=== PATIENT | male | born 1965 | race Caucasian/White ===

== ENCOUNTER 2017-11-02 04:49 | Emergency (ER) | payer MEDICAID ==
[2017-11-02] MEDS ORDERED: IPRATROPIUM/ALBUTEROL (0.5MG/3MG) NEB INH ONE (05:01)
--- NOTE | 2017-11-02 05:08 | Emergency Department Record ---
History of Present Illness - General Chief Complaint: Shortness of breath Stated Complaint: JOSE Time Seen by Provider: 11/02/17 05:02 Source: Patient Mode of Arrival: Ambulatory Limitations: No limitations - History of Present Illness Initial Comments: 52 yo male presents to ED for evaluation of worsening cough and difficulty breathing after being diagnosed with CAP 3 days ago. Patient has been taking Zithromax without improvement in his symptoms. Patient reports chills and subjective fever symptoms, denies health problems at his baseline. MD Complaint: Shortness of breath Onset/Timin -: Days(s) Severity: Moderate Consistency: Constant Improves With: Nothing Worsens With: Inspiration Context: Recent URI Associated Symptoms: Chest pain, Fever - Related Data Home Oxygen Therapy: No Allergies Allergy/AdvReac Type Severity Reaction Status Date / Time No Known Drug Allergies Allergy Unverified 03/16/17 20:38 Travel Screening - Travel/Exposure Within Last 30 Days Have you traveled within the last 30 days?: No Review of Systems Constitutional: Reports: Chills, Fever, Malaise. Denies: Night sweats Eyes: Denies: Eye discharge, Eye pain ENT: Denies: Congestion, Ear pain, Epistaxis Respiratory: Reports: Cough, Dyspnea Cardiovascular: Reports: Chest pain, Dyspnea on exertion. Denies: Palpitations Endocrine: Denies: Fatigue, Heat or cold intolerance Gastrointestinal: Denies: Abdominal pain, Nausea, Vomiting Genitourinary: Denies: Incontinence, Retention Musculoskeletal: Denies: Arthralgia, Back pain, Gout, Joint swelling Skin: Denies: Bruising, Change in color Neurological: Denies: Abnormal gait, Confusion, Headache, Seizure Psychiatric: Denies: Anxiety Hematological/Lymphatic: Denies: Anemia, Blood Clots Past Medical History - SOCIAL HISTORY Smoking Status: Current every day smoker Alcohol Use: None Drug Use: None - RESPIRATORY Hx Respiratory Disorders: No - CARDIOVASCULAR Hx Cardio Disorders: No - NEURO Hx Neuro Disorders: No - GI Hx GI Disorders: No - Hx Genitourinary Disorders: No - ENDOCRINE Hx Endocrine Disorders: No - MUSCULOSKELETAL Hx Musculoskeletal Disorders: Yes Comment:: some swelling/discomfort in the right lower extremity - PSYCH Hx Psych Problems: No - HEMATOLOGY/ONCOLOGY Hx Hematology/Oncology Disorders: No Family Medical History Any Significant Family History?: No Physical Exam - General General Appearance: Alert, Oriented x3, Cooperative, Moderate distress Limitations: No limitations - Head Head exam: Atraumatic, Normocephalic, Normal inspection Head exam detail: negative: Abrasion, Contusion, Arreaga's sign, General tenderness, Hematoma, Laceration - Eye Eye exam: Normal appearance. negative: Conjunctival injection, Periorbital swelling, Periorbital tenderness, Scleral icterus - ENT Ear exam: negative: Auricular hematoma, Auricular trauma Nasal Exam: negative: Active bleeding, Discharge, Dried blood, Foreign body Mouth exam: negative: Drooling, Laceration, Muffled voice, Tongue elevation - Neck Neck exam: Normal inspection. negative: Meningismus, Tenderness - Respiratory Respiratory exam: Decreased breath sounds. negative: Rales, Respiratory distress, Rhonchi - Cardiovascular Cardiovascular Exam: Regular rate, Normal rhythm, Normal heart sounds - GI/Abdominal GI/Abdominal exam: Soft. negative: Rebound, Rigid, Tenderness - Rectal Rectal exam: Deferred - exam: Deferred - Extremities Extremities exam: Normal inspection. negative: Calf tenderness, Pedal edema, Tenderness - Back Back exam: Denies: CVA tenderness (R), CVA tenderness (L) - Neurological Neurological exam: Alert, Normal gait, Oriented X3 - Psychiatric Psychiatric exam: Normal affect, Normal mood - Skin Skin exam: Normal color. negative: Abrasion Type of lesion: negative: abrasion Course Vital Signs 11/02/17 05:01 Temperature 97.7 F Pulse Rate [ 79 Pulse Ox Probe] Respiratory 24 Rate Blood Pressure 137/87 [Right Arm] Pulse Ox 100 - Reevaluation(s) Reevaluation #1: 11/02/17 05:02 EKG: NSR 78 Normal axis, normal intervals No acute ST-T wave changes Reevaluation #2: 11/02/17 06:40 Labs reviewed, D-Dimer 4.03, BUN 34/Creatinine 1.0. Labs are otherwise grossly unremarkable for an acute process. CTA reviewed preliminarily, appears c/w infiltrate right as well as PE left. Heparin and Rocephin ordered pending final report. Reevaluation #3: 11/02/17 06:53 CTA Chest: Multi-focal filling defects c/w PE bilaterally Consolidation of the right middle/left lower lobe, PNA vs. Infarct. Jessica 1-call contacted for transfer. Medical Decision Making - Lab Data Result diagrams: 11/02/17 05:05 11/02/17 05:05 Disposition Disposition: Transfer Clinical Impression: Pulmonary emboli Qualifiers: Pulmonary embolism type: other Chronicity: acute Acute cor pulmonale presence: without acute cor pulmonale Qualified Code(s): I26.99 - Other pulmonary embolism without acute cor pulmonale CAP (community acquired pneumonia) Qualifiers: Laterality: unspecified laterality Qualified Code(s): J18.9 - Pneumonia, unspecified organism Disposition: Acute Care Hospital [facility] Transfer: PE/CAP Accepting Physician: Kelsey Time Discussed w/Accepting Physician: 07:25 Condition: (2) Stable Forms: Patient Portal Access Time of Disposition: 07:25 Quality - Quality Measures Quality Measures: N/A - Blood Pressure Screening Does Patient Have Any of the Following: No Blood Pressure Classification: Normal BP Reading Systolic Measurement: 100 Diastolic Measurement: 79 Screening for High Blood Pressure: < Normal BP, F/U Not Required > [G8783]
[2017-11-02] MEDS ORDERED: 0.9 % SODIUM CHLORIDE 1000ML 1,000 ML IV SCH (05:15)
[2017-11-02 05:19] LABS: HEMATOCRIT 43.6 % (42.0-52.0); HEMOGLOBIN 14.7 gm/dl (14.0-18.0); MEAN CELL VOLUME 97.3 fl (81-97); MEAN CORPUSCULAR HEMOGLOBIN 32.8 pg (27-33); MEAN CORPUSCULAR HGB CONC 33.7 g/dl (32-36); PLATELET COUNT 274 K/uL (130-400); RED BLOOD COUNT 4.48 M/uL (4.40-5.70); RED CELL DISTRIBUTION WIDTH 13.5 % (11.5-14.5); WHITE BLOOD COUNT W/O DIFF 9.7 K/uL (4.2-12.2)
[2017-11-02 05:33] LABS: BLOOD UREA NITROGEN 34 mg/dL (6-20); EST GLOMERULAR FILTRATION RATE > 60 mL/min
[2017-11-02 05:34] LABS: TOTAL PROTEIN 8.3 g/dL (6.6-8.7)
[2017-11-02 05:35] LABS: GLUCOSE,RANDOM 121 mg/dL (74-109)
[2017-11-02 05:38] LABS: ALBUMIN 4.1 g/dL (4.0-5.0); ALKALINE PHOSPHATASE 63 U/L (40-129); ALT/SGPT 51 U/L (<41); AST/SGOT 47 U/L (10.0-50.0)
[2017-11-02] MEDS ORDERED: CEFTRIAXONE SODIUM 1 GM in 0.9 % SODIUM CHLORIDE 100ML 100 ML IVPB ONE (06:37)
[2017-11-02] MEDS ORDERED: HEPARIN SODIUM/D5W 25,000 UNITS/500 ML BAG IV SCH (06:45)
[2017-11-02] MEDS ORDERED: HYDROMORPHONE HCL 1MG/ML **SYRINGE IVP ONE ×2 (06:49→08:12)
[2017-11-02] MEDS ORDERED: MORPHINE SULFATE 5 MG/ML PFS IVP ONE (06:50)
--- NOTE | 2017-11-02 13:33 | CT ANGIOGRAM REPORT ---
EXAM: CTA OF THE CHEST HISTORY: LEFT LOWER CHEST PAIN, DIFFICULTY BREATHING. TECHNIQUE: Contiguous axial images from the thoracic inlet to the upper abdomen were obtained after the uneventful intravenous administration of 90 ml of Omnipaque 350. Sagittal and coronal two dimensional MIP as well as 3D/MIP reformatted images were obtained for better anatomic delineation. Comparison: Chest x-ray 02/28/17. FINDINGS: Biapical scarring. Mild paraseptal emphysema. The reticulonodular pattern in the right middle lobe as well as the left lower lobe is typical of an infectious or inflammatory process of the small airways. No pleural effusion. The central airways demonstrate dependent mucous in the trachea and main stem bronchi. The heart is not enlarged and there is no pericardial effusion. No enlarged lymph nodes in the thorax. Cord like nonocclusive filling defect extending from the right lower lobe pulmonary artery into the posterior basal segmental branch. Also more extensive filling defect involving the left lower lobe pulmonary artery extending into the anterior lateral and posterior basal segmental branches. No right heart strain. The upper abdomen is unremarkable. No lytic or blastic osseous lesion. IMPRESSION: 1. BILATERAL PULMONARY EMBOLI MOST NOTABLY WITHIN THE LEFT LOWER LOBE ABOVE. NO EVIDENCE OF RIGHT HEART STRAIN. 2. EMPHYSEMA WITH BIAPICAL SCARRING. 3. RETICULONODULAR OPACITY IN THE LEFT LOWER LOBE GREATER THAN RIGHT MIDDLE LOBE WHICH MAY REFLECT AN INFECTIOUS OR INFLAMMATORY PROCESS OF THE SMALL AIRWAYS. JOB NUMBER: [id number] MTDD
== END 2017-11-02 08:50 | disposition short-term general hospital (02) ==
LOC: ER 04:49
DX: I26.99 Other pulmonary embolism without acute cor pulmonale (principal); J18.9 Pneumonia, unspecified organism; R06.02 Shortness of breath; F17.210 Nicotine dependence, cigarettes, uncomplicated
CPT/HCPCS: 99285 ×2; 96376; 96365; 96366; 96375; 80053; 84484; 85379; 85027; 71275; 94640; 93005; 93010; Q9967; J2270; J1170; J7030